=== PATIENT | female | born 1950 | race African-American/Black ===

== ENCOUNTER 2018-09-08 13:02 | Emergency (ER) | payer MEDICARE ==
[~2018-09-08] VITALS: Ht 152.4 cm; Wt 85.5 kg
[2018-09-08 13:20] VITALS: Ht 152.4 cm; Wt 85.5 kg
[2018-09-08] MEDS ORDERED: OMEPRAZOLE20 M1 PO (13:24)
[2018-09-08] MEDS ORDERED: NEURONTIN 300300 MG PO (13:24)
[2018-09-08] MEDS ORDERED: COZAAR50 MG PO (13:24)
[2018-09-08] MEDS ORDERED: LIPITOR40 MG PO (13:24)
[2018-09-08] MEDS ORDERED: COREG25 MG PO (13:24)
[2018-09-08] MEDS ORDERED: NAPROSYN500 MG PO (13:25)
[2018-09-08] MEDS ORDERED: LISINOPRIL-HCT1 EAC7 PO (13:25)
[2018-09-08] MEDS ORDERED: NORVASC10 MG PO (13:25)
[2018-09-08] MEDS ORDERED: NOVOLIN 70/30 110 ML SC (13:26)
[2018-09-08] MEDS ORDERED: ULTRAM50 MG PO (14:01)
[2018-09-08 14:10] VITALS: BP 142/86
== END 2018-09-08 14:11 | disposition home or self-care (01) ==
LOC: D.ER 13:02
DX: M54.32 Sciatica, left side (principal)